=== PATIENT | female | born 1995 | race American Indian/Alaskan Native ===

== ENCOUNTER 2018-08-20 20:32 | Emergency (ER) | payer BC ==
[2018-08-20 20:55] VITALS: BP 132/64
[2018-08-20 22:05] LABS: HCG Qualitative,Urine Negative (Negative)
[2018-08-20] MEDS ORDERED: DECADRON IM ONE (22:24)
[2018-08-20] MEDS ORDERED: BICILLIN L-A IM ONE (22:24)
[2018-08-20] MEDS ORDERED: TORADOL IM ONE (22:24)
--- NOTE | 2018-08-20 22:29 | Emergency Department Report ---
ED General Adult HPI - General Chief complaint: Headache Stated complaint: HEADACHE Time Seen by Provider: 08/20/18 22:24 Source: patient Mode of arrival: Ambulatory Limitations: No Limitations - History of Present Illness Initial comments: Patient is a 23-year-old Females had a headache blurry vision for the past 3 days. Patient is generally not felt well. Patient had one episode of vomiting this morning after attempting to eat. Patient denies any light sensitivity. Patient describes her headache as a migraine however she states she has no history of migraines. Patient's is a side note did mention that she has some sore throat when she swallows. Patient states that his sore throat was 6 out of 10 in severity. - Related Data Previous Rx's Medication Instructions Recorded Last Taken Type Acetaminophen/Codeine [Tylenol #3] 1 tab PO Q6H PRN #15 tab 12/15/15 Unknown Rx Ondansetron [Zofran Odt] 4 mg PO TID #15 tab.rapdis 12/15/15 Unknown Rx HYDROcodone/ACETAMINOPHEN 15 ml PO Q6HR PRN #150 solution 08/20/18 Unknown Rx [Hydrocodon-Acetamin 7.5-325/15] Allergies Allergy/AdvReac Type Severity Reaction Status Date / Time No Known Allergies Allergy Unverified 12/15/15 02:04 ED Review of Systems ROS: Stated complaint: HEADACHE Other details as noted in HPI Comment: All other systems reviewed and negative ED Past Medical Hx - Past Medical History Previous Medical History?: No - Surgical History Past Surgical History?: No - Social History Smoking Status: Never Smoker Substance Use Type: None - Medications Home Medications: Home Medications Medication Instructions Recorded Confirmed Last Taken Type Acetaminophen/Codeine [Tylenol #3] 1 tab PO Q6H PRN #15 tab 12/15/15 Unknown Rx Ondansetron [Zofran Odt] 4 mg PO TID #15 tab.rapdis 12/15/15 Unknown Rx HYDROcodone/ACETAMINOPHEN 15 ml PO Q6HR PRN #150 solution 08/20/18 Unknown Rx [Hydrocodon-Acetamin 7.5-325/15] ED Physical Exam - General Limitations: No Limitations General appearance: alert, in no apparent distress - Head Head exam: Present: atraumatic, normocephalic - Eye Eye exam: Present: normal appearance - ENT ENT exam: Present: mucous membranes moist. Absent: normal orophraynx (agent has diffuse tonsillar swelling with extensive exudate. Patient also has some anterior cervical lymph nodes present) - Neck Neck exam: Present: normal inspection - Respiratory Respiratory exam: Present: normal lung sounds bilaterally. Absent: respiratory distress, wheezes, rales, rhonchi - Cardiovascular Cardiovascular Exam: Present: regular rate, normal rhythm. Absent: systolic murmur, diastolic murmur, rubs, gallop - GI/Abdominal GI/Abdominal exam: Present: soft, normal bowel sounds - Extremities Exam Extremities exam: Present: normal inspection - Back Exam Back exam: Present: normal inspection - Neurological Exam Neurological exam: Present: alert, oriented X3 - Psychiatric Psychiatric exam: Present: normal affect, normal mood - Skin Skin exam: Present: warm, dry, intact, normal color. Absent: rash ED Course Vital Signs 08/20/18 20:54 Temperature 99.8 F H Pulse Rate 87 Respiratory 18 Rate Blood Pressure 132/64 O2 Sat by Pulse 98 Oximetry ED Medical Decision Making - Medical Decision Making Patient has tonsillar exudate with anterior cervical lymph nodes and no cough. Patient does meet [facility] criteria for empiric treatment. Critical care attestation.: If time is entered above; I have spent that time in minutes in the direct care of this critically ill patient, excluding procedure time. ED Disposition Clinical Impression: Exudative pharyngitis Disposition: DC-01 TO HOME OR SELFCARE Is pt being admited?: No Does the pt Need Aspirin: No Condition: Stable Instructions: Pharyngitis (ED) Forms: Work/School Release Form(ED) Time of Disposition: 22:28
== END 2018-08-20 23:00 | disposition home or self-care (01) ==
LOC: ED 20:32
DX: J02.9 Acute pharyngitis, unspecified (principal); R51 Headache; H53.8 Other visual disturbances; R11.10 Vomiting, unspecified
CPT/HCPCS: 81025; 96372; 99283; J0561; J1100; J1885

== ENCOUNTER 2021-11-18 10:31 | Emergency (ER) | payer SELFPAY ==
[2021-11-18 11:14] VITALS: BP 130/87
--- NOTE | 2021-11-18 11:40 | Emergency Department Report ---
ED ENT HPI - General Chief complaint: Dental/Oral Stated complaint: ALLERGIC RXN Time Seen by Provider: 11/18/21 11:20 Source: patient Mode of arrival: Ambulatory Limitations: No Limitations - History of Present Illness Initial comments: Patient is a 26-year-old female presents emergency room with complaints of right cheek swelling that began yesterday. She denies any fever, chills, vomiting, diarrhea, rash, difficulty swallowing, difficulty breathing. She states that she last saw dentist approximately 1 year ago. She denies any past medical history. No allergies to medications. She states her last menstrual cycle was the end of September. - Related Data Previous Rx's Medication Instructions Recorded Last Taken Type Acetaminophen/Codeine [Tylenol #3] 1 tab PO Q6H PRN #15 tab 12/15/15 Unknown Rx Ondansetron [Zofran Odt] 4 mg PO TID #15 tab.rapdis 12/15/15 Unknown Rx HYDROcodone/ACETAMINOPHEN 15 ml PO Q6HR PRN #150 solution 08/20/18 Unknown Rx [Hydrocodon-Acetamin 7.5-325/15] Acetaminophen [Tylenol] 650 mg PO Q8HR PRN #20 cap 11/18/21 Unknown Rx Penicillin V Potassium 500 mg PO QID 7 Days #28 11/18/21 Unknown Rx Allergies Allergy/AdvReac Type Severity Reaction Status Date / Time No Known Allergies Allergy Unverified 12/15/15 02:04 ED Dental HPI - General Chief complaint: Dental/Oral Stated complaint: ALLERGIC RXN Time Seen by Provider: 11/18/21 11:20 Source: patient Mode of arrival: Ambulatory Limitations: No Limitations - Related Data Previous Rx's Medication Instructions Recorded Last Taken Type Acetaminophen/Codeine [Tylenol #3] 1 tab PO Q6H PRN #15 tab 12/15/15 Unknown Rx Ondansetron [Zofran Odt] 4 mg PO TID #15 tab.rapdis 12/15/15 Unknown Rx HYDROcodone/ACETAMINOPHEN 15 ml PO Q6HR PRN #150 solution 08/20/18 Unknown Rx [Hydrocodon-Acetamin 7.5-325/15] Acetaminophen [Tylenol] 650 mg PO Q8HR PRN #20 cap 11/18/21 Unknown Rx Penicillin V Potassium 500 mg PO QID 7 Days #28 11/18/21 Unknown Rx Allergies Allergy/AdvReac Type Severity Reaction Status Date / Time No Known Allergies Allergy Unverified 12/15/15 02:04 ED Review of Systems ROS: Stated complaint: ALLERGIC RXN Other details as noted in HPI Comment: All other systems reviewed and negative ED Past Medical Hx - Social History Smoking Status: Never Smoker Substance Use Type: None - Medications Home Medications: Home Medications Medication Instructions Recorded Confirmed Last Taken Type Acetaminophen/Codeine [Tylenol #3] 1 tab PO Q6H PRN #15 tab 12/15/15 Unknown Rx Ondansetron [Zofran Odt] 4 mg PO TID #15 tab.rapdis 12/15/15 Unknown Rx HYDROcodone/ACETAMINOPHEN 15 ml PO Q6HR PRN #150 solution 08/20/18 Unknown Rx [Hydrocodon-Acetamin 7.5-325/15] Acetaminophen [Tylenol] 650 mg PO Q8HR PRN #20 cap 11/18/21 Unknown Rx Penicillin V Potassium 500 mg PO QID 7 Days #28 11/18/21 Unknown Rx ED Physical Exam - General Limitations: No Limitations General appearance: alert, in no apparent distress - Head Head exam: Present: atraumatic, normocephalic - Eye Eye exam: Present: normal appearance - ENT ENT exam: Present: mucous membranes moist, other (there is a dental carry present to the right upper molar, there is induration to the assocaited upper gumline, no fluctuance, no drainage, mild right facial edema, uvula is midline, no uvular edema or deviation, no trismus, no tongue elevation, no muffled voice, no submandibular edema, no trismus) - Respiratory Respiratory exam: Absent: respiratory distress, accessory muscle use - Neurological Exam Neurological exam: Present: alert, oriented X3 - Psychiatric Psychiatric exam: Present: normal affect, normal mood - Skin Skin exam: Present: warm, dry, intact ED Course Vital Signs 11/18/21 11:13 Temperature 97.6 F Pulse Rate 58 L Respiratory 16 Rate Blood Pressure 130/87 [Right] O2 Sat by Pulse 100 Oximetry ED Medical Decision Making - Medical Decision Making Patient is a 26-year-old female presents emergency room with complaints of right cheek swelling that began yesterday. She denies any fever, chills, vomiting, diarrhea, rash, difficulty swallowing, difficulty breathing. She states that she last saw dentist approximately 1 year ago. She denies any past medical history. No allergies to medications. She states her last menstrual cycle was the end of September. VSS. on exam: there is a dental carry present to the right upper molar, there is induration to the assocaited upper gumline, no fluctuance, no drainage, mild right facial edema, uvula is midline, no uvular edema or deviation, no trismus, no tongue elevation, no muffled voice, no submandibular edema, no trismus. Examination appears consistent with dental abscess. There is no signs of facial abscess or Dorian's at this time. Patient given prescription for medication. Discussed the importance of dental follow-up. Advised patient Please take medication as prescribed. Follow-up with a dentist. Return to emergency room for any new or worsening symptoms. Critical care attestation.: If time is entered above; I have spent that time in minutes in the direct care of this critically ill patient, excluding procedure time. ED Disposition Clinical Impression: Dental abscess Disposition: 01 HOME / SELF CARE / HOMELESS Is pt being admited?: No Does the pt Need Aspirin: No Condition: Stable Instructions: Dental Abscess Additional Instructions: Please take medication as prescribed. Follow-up with a dentist. Return to emergency room for any new or worsening symptoms. Prescriptions: Penicillin V Potassium 500 mg PO QID 7 Days #28 Acetaminophen [Tylenol] 650 mg PO Q8HR PRN #20 cap PRN Reason: pain Referrals: a, dentist [Other] - 2-3 Days Time of Disposition: 11:38 Print Language: UKRAINIAN
== END 2021-11-18 12:03 | disposition home or self-care (01) ==
LOC: ED 10:31
DX: K04.7 Periapical abscess without sinus (principal)
CPT/HCPCS: 99282